=== PATIENT | female | born 1970 | race Caucasian/White ===

== ENCOUNTER 2024-12-22 03:17 | Day surgery (SDC) | payer SELFPAY ==
[2024-12-22] VITALS (30 sets, daily range): BP systolic 99–177; BP diastolic 61–92; PULSE 53–107; RESP 16–30; TEMP 36.1–36.9; O2SAT 96–100; BMI 25.8
--- NOTE | 2024-12-22 03:24 | ED.GENADUL_ITS ---
Discharge Plan Disposition Patient Disposition: Admit to [facility] Condition: Stable Discharge Details Clinical Impression: Vaginal laceration Primary Care Provider: None,None ED Provider: Scott Welch Home Meds and New Rx's Prescriptions: No Action No Known Home Meds HPI General Mode of arrival: EMS . Date/Time Provider Initiated Documentation: 12/22/24 03:47 . Limitations to Documentation: no limitations . Information obtained by: patient, EMS and RN notes reviewed . HPI Narrative: Patient presents to ED with profuse vaginal bleeding that began during intercourse. She denies any type of pain. She has been postmenopausal for years now. She is passing blood and clots and called EMS. On their arrival she was noted to be tachycardic with large amount of blood present. IV was established and fluids started. Boilermaker Mechanic called and and I gave orders to proceed with 1 g TXA intravenously. On arrival patient is awake and alert. Continues to deny any pain. Last ate 6 hours ago and last drank 2 hours ago. She has had some alcohol tonight. 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 VS per triage. HEENT: NC/AT. Normal facial exam. Neck: Supple. Trachea midline. Lungs: Normal respiratory effort. Cor: Good radial pulses. GI: Soft/ND/NT. Pelvic: Clots and bleeding from vagina. Neuro: A+O x 3. Normal speech, mentation, gait. Cranial nerves II - XII grossly intact. No gross motor or sensory deficit. Course Vital Signs Vital signs: Vital Signs Temperature 97 F L 12/22/24 03:11 Pulse 95 H 12/22/24 03:11 Respiratory Rate 18 12/22/24 03:11 Blood Pressure 177/92 H 12/22/24 03:11 Pulse Oximetry 98 12/22/24 03:11 Temperature 97 F L 12/22/24 03:11 Temperature Source Tympanic 12/22/24 03:11 Pulse 95 H 12/22/24 03:11 Respiratory Rate 18 12/22/24 03:11 Blood Pressure 177/92 H 12/22/24 03:11 Pulse Oximetry 98 12/22/24 03:11 Oxygen Delivery Method Room Air 12/22/24 03:11 Oxygen Flow Rate 0 12/22/24 03:11 Pain Level 0 12/22/24 03:11 Medical Decision Making On arrival patient has second line placed and laboratory studies sent. TXA was just finishing up. Large amount of blood and clots present at the vaginal opening. This was removed and I then packed eight 4 x 4 sponges into the vaginal vault. OB and OR team notified. Patient continues to ooze blood but is not heavily bleeding now that she has had TXA and sponges placed. She has remained stable and her hemoglobin is 13.8. Dr. Tomas has seen the patient and patient will be going to OR as soon as rest of team here. Lab Data Lab results reviewed: Yes I reviewed the patient's lab results. Lab results narrative: see [facility] All Active Problems (Updated 12/22/24 @ 03:31 by Scott Welch MD) Vaginal laceration (Acute) Social History Smoking/Tobacco Use Status: Current every day Smoking risk assessment performed?: Yes Drug use: Never Substance use type: marijuana PAWSS Have you Been Recently Intoxicated or Drunk Within the Last 30 days?: No Have you Ever Experienced Previous Episodes of Alcohol Withdrawal?: No Have you ever Experienced Withdrawal Seizures?: No Have you ever Experienced Delirium Tremens(DT)s?: No Have you ever undergone Alcohol Rehabilitation Treatment (i.e, inpt ot outpatient treatment programs)?: No Have you ever Experienced Blackouts?: No Have you ever Combined Alcohol with other Downers within the last 90 days?: No Have you ever Combined Alcohol with any other Substance of Abuse during the last 90 days?: No Positive Blood Alcohol level on Presentation? [PCS.BAL]: No Evidence of Increased Autonomic Activity (i.e. HR>120, tremor, sweating, agitation, nausea)?: No Result: 0
[2024-12-22 03:28] LABS: HCT 38.5 % (36.0-46.0); HGB 13.8 g/dL (11.2-15.7); MCH 34.2 pg (27.0-33.0); MCHC 35.8 % (32.0-36.0); MCV 96 fL (80-95); MPV 9.1 fL (8.0-11.0); Platelet Count 224 10^3/uL (130-400); RBC 4.03 10^6/uL (3.93-5.22); RDW 12.1 % (11.7-14.6); RDW-SD 42.7 fL; WBC 11.55 10^3/uL (4.4-10.8)
[2024-12-22] MEDS: Normal Saline 1,000 ML 1000 ML IV (03:33)
--- NOTE | 2024-12-22 03:58 | W.GYNCONSULT ---
Date of service: 12/22/24 Time of Service: 03:58 Assessment and Plan Assessment and plan (1) Vaginal laceration: Status: Acute Assessment and plan: Will proceed to the OR for repair of the laceration. Consent signed, team notified. History of Present Illness Narrative: Pt is a 54yo P2 who reports that they had intercourse about 2hrs ago and she suddenly started bleeding a lot. She denies any pain at the time. She has been friends with with him for 13yrs but they're just becoming romantic partners and this was the first time they had intercourse. She has not been sexually active for a while and is now postmenopausal. 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 Consults Consult date: 12/22/24 Requesting physician: Scott Welch Review of Systems Genitourinary Genitourinary: Reports system reviewed and no additional complaints, except as documented PFSH All Active Problems (Updated 12/22/24 @ 03:31 by Scott Welch MD) Vaginal laceration (Acute) Social History Smoking/Tobacco Use Status: Current every day Smoking risk assessment performed?: Yes Drug use: Never Substance use type: marijuana History History 3 Para 2 Hx # Term Pregnancies 2 Multiple births Hx # Pregnancies Ectopic pregnancies AB induced Hx Number of Living Children 2 AB spontaneous 1 Exam Const General: cooperative, healthy appearing and no acute distress HENMT Head: normocephalic and atraumatic Ears: hearing grossly normal bilaterally Resp Effort & Inspection: normal respiratory effort and able to speak in complete sentences Other: ED provider packed the vagina with 8 gauze sponges. There was blood noted coming through those sponges onto the blankets. Neuro General: patient alert and patient awake Psych Appearance: grossly normal Mental Status: mental status grossly normal Speech and Movement: speech and movement normal Affect: normal affect Attitude: cooperative Thought Process: normal Thought Content: normal Results Last Vital Signs Temp 97 F L 12/22/24 03:11 Pulse 81 12/22/24 03:32 Resp 16 12/22/24 03:32 BP 116/83 12/22/24 03:32 Pulse Ox 99 12/22/24 03:32 Labs 12/22/24 03:20 Labs: Laboratory Results - last 24 hr 12/22/24 03:20 WBC 11.55 H RBC 4.03 Hgb 13.8 Hct 38.5 MCV 96 H MCH 34.2 H MCHC 35.8 RDW 12.1 Plt Count 224 MPV 9.1
--- NOTE | 2024-12-22 04:05 | ANES.PREOP_ITS ---
General Info Date of Service Date Performed: 12/22/24 Height: 5 ft 7 in Weight: 74.797 kg Body Mass Index (BMI): 25.8 Surgical Procedure: Operation Date: 12/22/24 04:05 Proposed Procedure Side Surgeon p Exam Under Anesthesia W/Vaginal Laceration Repir Marisol Tomas MD Meds Allergies and Home Medications Allergies Allergy/AdvReac Type Severity Reaction Status Date / Time Sulfa (Sulfonamide Allergy Severe Anaphylaxsi Unverified 12/22/24 03:23 Antibiotics) s sulfite AdvReac Mild Other (See Verified 12/22/24 03:23 Comment) Home Medication ?Medication ?Instructions ?Recorded Unknown [No Known Home Meds] 12/22/24 Current Visit Medications: Current Medications Generic Name Dose Route Start Last Admin Trade Name Freq PRN Reason Stop Dose Admin Sodium Chloride 1,000 mls @ 1,000 mls/hr 12/22/24 03:07 12/22/24 03:33 Saline 1000ml Bag IV 12/22/24 04:06 1,000 mls/hr BOLUS ONE Administration IV Miscellaneous Supplies 2 each 12/22/24 03:15 Iv Access IV DIRECTED ALESSANDRO Sodium Chloride 0 ml 12/22/24 03:07 Normal Saline Flush 10 Ml Syr IVP PRN PRN Sodium Chloride 0 ml 12/22/24 08:30 Normal Saline Flush 10 Ml Syr IVP BID ALESSANDRO Sodium Chloride 0 ml 12/22/24 03:07 Normal Saline 10 Ml Vial IJ DIRECTED PRN PFSH Active Problems Active Problems: Problem Status Onset Code Vaginal laceration Acute [id number] Tobacco Smoking/Tobacco Use Status: Current every day Substance Use Substance use: Never Substance use type: marijuana Vital Signs and Lab Results Vital Signs Most Recent Vital Signs in EMR: Most Recent Vital Signs Temp Pulse Resp BP Pulse Ox 36.1 C L 81 16 116/83 99 12/22/24 03:11 12/22/24 03:32 12/22/24 03:32 12/22/24 03:32 12/22/24 03:32 Lab Results 12/22/24 03:20 Blood Type / Crossmatch: 2 Antibody Screen NEGATIVE Today Complete Blood Count: 2 WBC, (4.4-10.8) 11.55 10^3/uL H Today, 03:20 RBC, (3.93-5.22) 4.03 10^6/uL Today, 03:20 Hgb, (11.2-15.7) 13.8 g/dL Today, 03:20 Hct, (36.0-46.0) 38.5 % Today, 03:20 Plt Count, (130-400) 224 10^3/uL Today, 03:20 Anesthesia Assessment and Plan Anesthesia History Personal History: No History of Anesthesia Complications Family History: No Family History of Anesthesia Complications Exercise Tolerance Exercise Tolerance: Metabolic Equivalents>4 Pertinent Negatives Pertinent Negatives: No Symptoms of GERD, No Major Cardiovascular Symptoms or Complaints and No Major Pulmonary Symptoms or Complaints Cardiac & Pulmonary Exam Cardiac Exam: Normal S1/S2 Heart Sounds Pulmonary Exam: Clear Bilateral Breath Sounds Cardiac and Pulmonary Comment:: Smoker Implantable Cardiac Device Does patient have a Pacemaker or an ICD?: No Airway Exam Known Difficult Airway: No Mallampati Class: 3 Mouth Opening: Normal (> 3cm) Thyromental Distance: Less than 3 cm Neck Range of Motion: Full ROM Neck Circumference: Normal Teeth Condition: Normal Dentition (left front missing, none loose per pt) ASA Classification ASA Score: ASA 2 Emergency Case?: No NPO Status NPO Status: NPO Clears >2 hours, Solids >8 hours Anesthesia Plan Resuscitation Status: Full Code Anesthesia Technique: General Anesthesia Airway Planned: Endotracheal Tube Monitors Used: Standard Monitors
[2024-12-22] MEDS: Normal Saline 1,000 ML 30 ML IV (04:32)
--- NOTE | 2024-12-22 05:15 | W.PM.OP ---
Operative Note Operative Note PRE-OP DIAGNOSIS: vaginal bleeding s/p intercourse POST-OP DIAGNOSIS: other (vaginal laceration) PROCEDURE: Exam under anesthesia, repair of vaginal laceration. SURGEON: Marisol Tomas Refer to Anesthesia Record ESTIMATED BLOOD LOSS: 50 COMPLICATIONS: None Patient was transported to: PACU Patient's condition: stable Findings: 2cm laceration in the right upper posterior vaginal wall Procedure Description: After informed consent was signed the patient was taken to the operating room and given GET anesthesia. She was prepped and draped in the dorsal lithotomy position in the [facility]. A time out was performed. The gauze sponges were removed and counted. There was moderate vaginal bleeding noted. Exam under anesthesia revealed a ~2cm laceration of the right posterior vaginal wall near the apex. This was repaired with 2-0 vicryl in a running fashion. Good hemostasis was noted after the repair was complete. The patient was placed back into the supine position. She was moved to the stretcher and taken to the recovery room in stable condition. Date of Procedure: 12/22/24
--- NOTE | 2024-12-22 05:34 | W.ANESPOSTOP ---
Postoperative Evaluation Date, Time and Location Date Performed: 12/22/24 Time Performed: 05:34 Patient Location: PACU Vital Signs Most Recent Imported Vital Signs: Most Recent Vital Signs Temp Pulse Resp BP Pulse Ox 36.4 C L 69 18 110/74 99 12/22/24 05:25 12/22/24 05:16 12/22/24 05:16 12/22/24 05:16 12/22/24 05:16 Pain Score Most Recent Pain Score: Most Recent Pain Score Pain Level 0 12/22/24 05:25 Assessment Mental Status: Awake (Alert & Oriented to Patient Baseline) Airway and Respiratory Function: Patent airway with normal (patient baseline) respiratory exam Cardiovascular Function: Hemodynamically Stable Hydration Status: Adequately Hydrated Nausea & Vomiting: No Nausea or Vomiting Pain: Pt. Denies Any Pain Peripheral Nerve Block: Patient did not receive a nerve block
--- NOTE | 2024-12-22 05:57 | W.PM.DSUDISC ---
Date of service: 12/22/24 Discharge Plan Disposition Patient Disposition: Home Discharge Details Reason For Visit: [place] Attending Provider: Marisol Tomas Primary Care Provider: None,None Home Meds and New Rx's Prescriptions: No Action No Known Home Meds Discharge Instructions Activity:: Nothing in the vagina Shower/Bathe:: 24 hours Diet:: As Tolerated Discharge Orders Discharge Orders: Discharge Order (Routine); Ordered 12/22/24 Ordered By: Marisol Tomas DS: Diagnosis Discharge Diagnosis (1) Vaginal laceration: Status: Acute
--- NOTE | 2024-12-22 05:57 | W.PM.PROGNOT ---
Date of Service Date of service: 12/22/24 Time of Service: 05:57 Assessment and Plan Assessment and plan (1) Vaginal laceration: Status: Acute Assessment and plan: Pt just underwent repair of vaginal laceration with significant hemorrhage prior to the procedure. No further bleeding noted. She is tired but denies pain. She will f/u in the office to evaluate the repair in about 2wks and should put nothing in the vagina until then. She should call with any increasing bleeding or pain. Subjective Subjective Interval history since last seen: Pt is almost 1hr s/p completion of surgery with repair of vaginal laceration. She denies any pain. She is just starting to take oral fluids. Exam Const General: cooperative, healthy appearing and no acute distress HENMT Head: normocephalic and atraumatic Ears: hearing grossly normal bilaterally Resp Effort & Inspection: normal respiratory effort and able to speak in complete sentences Neuro General: patient alert and patient awake Psych Appearance: grossly normal Mental Status: mental status grossly normal Speech and Movement: speech and movement normal Affect: normal affect Attitude: cooperative Thought Process: normal Thought Content: normal Objective Last Vital Signs Temp 98.4 F 12/22/24 05:45 Pulse 78 12/22/24 05:45 Resp 18 12/22/24 05:45 BP 122/79 12/22/24 05:45 Pulse Ox 97 12/22/24 05:45 Laboratory Results - last 24 hr 12/22/24 03:20 WBC 11.55 H RBC 4.03 Hgb 13.8 Hct 38.5 MCV 96 H MCH 34.2 H MCHC 35.8 RDW 12.1 Plt Count 224 MPV 9.1 ABO/Rh B Positive Antibody Screen NEGATIVE PAWSS Have you Been Recently Intoxicated or Drunk Within the Last 30 days?: No Have you Ever Experienced Previous Episodes of Alcohol Withdrawal?: No Have you ever Experienced Withdrawal Seizures?: No Have you ever Experienced Delirium Tremens(DT)s?: No Have you ever undergone Alcohol Rehabilitation Treatment (i.e, inpt ot outpatient treatment programs)?: No Have you ever Experienced Blackouts?: No Have you ever Combined Alcohol with other Downers within the last 90 days?: No Have you ever Combined Alcohol with any other Substance of Abuse during the last 90 days?: No Positive Blood Alcohol level on Presentation? [PCS.BAL]: No Evidence of Increased Autonomic Activity (i.e. HR>120, tremor, sweating, agitation, nausea)?: No Result: 0 Time Spent with Patient Time Spent with Patient: <25 minutes Time was spent: obtaining and/or reviewing separately otained hiistory and counseling the patient
--- NOTE | 2024-12-22 13:42 | NUR.NOTE ---
Patient called asking for copy of discharge instructions. In accessing the chart patient was admitted. Call put to MS for her request. Nursing Note:
== END 2024-12-22 07:10 | disposition home or self-care (01) ==
LOC: ER 04:35 → SUR 04:39
PROVIDERS: Emergency Provider Emergency Medicine; Visit Provider Obstetrics & Gynecology
PROC: (CPT 57200; principal; 2024-12-22 04:05)
DX: S31.41XA Laceration without foreign body of vagina and vulva, initial encounter (principal)
CPT/HCPCS: 57200; 85027; 86850; 86900; 86901; 96360; 99285; J1100; J1885; J2003; J2405; J2704